=== PATIENT | male | born 2005 ===

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

== ENCOUNTER 2023-01-15 12:45 | Inpatient (IN) | payer OTHER, SELFPAY ==
[2023-01-15 13:19] VITALS: BP 128/60; PULSE 71; RESP 18; TEMP 37.1; O2SAT 98
[2023-01-15 13:53] VITALS: BMI 27.4
--- NOTE | 2023-01-15 17:34 | PC.ADMIT ---
Pt is 17 yr old non-binary preferring to be called Etelvina with no preferred pronouns, coming to [facility] from [facility] s/p SI with plan to jump off bridge after recent breakup. Pt came onto floor on 01/15/23 at 1250 pm and signed a CV and also signed a 3 day. Pt is calm and cooperative during admission but appears depressed and withdrawn. At this time, pt denies SI while on the unit.
[2023-01-15 18:00] VITALS: BP 132/60; PULSE 67; RESP 18; TEMP 36.8; O2SAT 99
--- NOTE | 2023-01-15 18:06 | PC.NURSE ---
Hospitalist consult ordered and contacted 01/15/23 at 1353 to Radha Hall
[2023-01-15] MEDS: hydrOXYzine HCL 25 MG TABLET PO (21:46)
[2023-01-16 08:10] VITALS: BP 125/64; PULSE 66; RESP 18; TEMP 36.1; O2SAT 99
[2023-01-16] MEDS: Escitalopram Oxalate 20 MG TABLET PO (08:17)
[2023-01-16] MEDS: Acetaminophen 325 MG TABLET 650 MG PO (09:07)
--- NOTE | 2023-01-16 12:12 | P.CONHOSP_ITS ---
History of Present Illness Data of Consult Service Date: 01/16/23 Primary Care Provider: NELA UPTON MD [facility] Reason for consult: Admission H&P Pt is a 17-year-old male with a PMH significant for?recent asthma diagnosis, anxiety, and depression who is admitted to [facility] psychiatry unit for increased anxiety and depression with SI with plan to jump off a bridge due to a recent break-up. Medical consult for admission H&P. ?Patient states that he was recently diagnosed with asthma and started on a once a month inhaler. Reports he does not yet have a prescription for a daily rescue inhaler. Also reports chronic knee pain that has been ongoing for many years and is of unknown origin. Denies any trauma or accidents. Currently pain is at baseline. Patient otherwise has no acute medical complaints. Denies fever, chills, nausea, vomiting, abdominal pain. No chest pain/pressure, palpitations. Denies shortness of breath. No wheezing. Denies headache, lightheadedness, dizziness. Review of Systems Review of Systems: Chronic knee pain Patient otherwise has no acute medical complaints at this time. FOR[facility]LY [facility], [facility] Medical History Depression No known health problems Surgical History No history of previous surgery Social History Household Members: Family Housing: House Do you presently have visiting nurse or other home services: No Patient Tobacco Use Status: Never used Tobacco Smoked in Last 30 Days: No Patient Interested in Nicotine Replacement: No Patient Given Instructions on How to Stop Smoking: No Second Hand Smoke Exposure: No Use of substances other than those prescribed or required for medical reasons: No Currently Displaying Signs/Symptoms of Drug Intoxication Withdrawal: No Any prior treatment program specific to substance use: No Have you been hit, kicked, punched, or otherwise hurt by someone within the past year? If so, by whom?: No Do you feel safe in your current relationship?: No Current Relationship Is there a partner from a previous relationship who is making you feel unsafe now?: No Are you made to feel afraid or neglected: No Advance Directives: No Advance Directives Information Provided: Yes (Declined) Do you have thoughts of harming others: None Do you have a plan to hurt others: No Plan Recently lost weight without trying: No Nutrition Risks: No Nutritional Risk Poor oral hygiene: No service: No Sexual orientation: Don't Know Meds Allergies Allergy/AdvReac Type Severity Reaction Status Date / Time No Known Allergies Allergy Verified 07/26/21 16:16 Active Medications: Current Medications Acetaminophen (Acetaminophen 325 Mg Tablet) 650 mg PO Q6H PRN PRN Reason: Headache/Pain Mild Scale (1-3) Last Admin: 01/16/23 09:07 Dose: 650 mg Al Hydroxide/Mg Hydroxide (Magnesium Hydrox/Alum Hydrox 30 Ml Oral.Susp) 30 ml PO Q6H PRN PRN Reason: Heartburn/Nausea Escitalopram Oxalate (Escitalopram Oxalate 20 Mg Tablet) 20 mg PO DAILY EVARISTO Last Admin: 01/16/23 08:17 Dose: 20 mg Hydroxyzine HCl (Hydroxyzine Hcl 25 Mg Tablet) 25 mg PO Q6H PRN PRN Reason: Anxiety Last Admin: 01/15/23 21:46 Dose: 25 mg Magnesium Hydroxide (Milk Of Magnesia 30 Ml Oral.Susp) 30 ml PO DAILY PRN PRN Reason: Constipation Nicotine (Nicotine 21 Mg Patch.Td24) 21 mg TRANSDERMA DAILY PRN PRN Reason: smoking cessation Nicotine Polacrilex (Nicotine Polacrilex 2 Mg Gum) 4 mg BUCCAL Q2H PRN PRN Reason: Nicotine Cravings Trazodone HCl (Trazodone Hcl 50 Mg Tablet) 50 mg PO BEDTIME MRX1 PRN PRN Reason: Insomnia Home Medications Medication Instructions Recorded Confirmed Last Taken Type escitalopram oxalate 10 mg tablet 10 mg PO BEDTIME 01/15/23 01/15/23 01/15/23 08:20 History (Lexapro) Physical Exam Vital Signs and Narrative: Vital Signs: Last Vital Signs Temp 96.9 F 01/16/23 08:10 Pulse 66 01/16/23 08:10 Resp 18 01/16/23 08:10 BP 125/64 01/16/23 08:10 Pulse Ox 99 01/16/23 08:10 O2 Del Method Room Air 01/16/23 08:10 BMI result Body Mass Index 27.4 Constitutional: Alert, in no acute distress. Mental Status: Oriented to person, place and time. Eyes: Pupils are equal, round, and reactive to light. Ear, Nose, and Throat: Oropharynx clear, mucous membranes moist. Ears and nose without deformities. Trachea midline. Respiratory: Clear to auscultation bilaterally. No wheezing, rales, or rhonchi. Cardiovascular: S1, S2 regular. No murmurs, rubs, or gallops. Gastrointestinal: Abdomen soft, non-tender, non-distended. Normal bowel sounds. Neurologic: Cranial nerves II-XII are grossly intact bilaterally. No focal neurological deficits. Moves all extremities spontaneously. Skin: No rashes or lesions noted. Musculoskeletal: No cyanosis or clubbing. Knees non-tender to palpation bilaterally. Preserved passive and active ROM of knees bilaterally. Extremities: No edema. Psychiatric: Flat affect. Assessment and Plan (1) Medical clearance for psychiatric admission: Status: Acute Plan Pt is a 17-year-old male with a PMH significant for?recent asthma diagnosis, anxiety, and depression who is admitted to [facility] psychiatry unit for increased anxiety and depression with SI with plan to jump off a bridge due to a recent break-up. Medical consult for admission H&P. ? Mood disorder Plan as per Psychiatry Mild intermittent Asthma Not in acute exacerbation Continue any home inhalers Chronic bilateral knee pain At baseline Treat conservatively with acetaminophen Patient otherwise has no chronic or acute complaints. Thank you for allowing us to participate in the care of this patient. Signing off at this time. Please let us know if there are any acute complaints or questions. Time Spent With Patient Time: Total time managing care of this patient today ____ minutes.
--- NOTE | 2023-01-16 13:04 | HO.PSYADMNOT ---
HPI Date of Service: 01/16/23 Chief Complaint: Adjustment D/O with Mixed Anxiety and Depression Sources of Information: patient interviewed, chart reviewed and crisis/core team assessment reviewed HPI Subjective Notes: [place] Warning, Conditional Voluntary and 3 Day Healthcare Proxy: No Guardianship: No Medical Problems Affecting Mental Status: No Narrative: 17 yo male, prefers to be called Etelvina, pronouns they, them, transfer from [facility] due to SI, increased depression, anxiety. Plan was to jump from a bridge. Reports feeling overwhelmed with stressors. Reports sx of depression since age 10. Possible precipitants: Recent break up of a 10 month relationship. 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 States the courses are hard and feels his memory is poor. He struggles with the amount of freedom he has as opposed to high school, however, it is a mixed benefit. Reports poor sleep, reversal of cycle-naps during the day and is sleepy all of the time. Past Psychiatric History: Reports depression for 8 years. IP at [facility] by history No suicide attempts. Reports an attempt to suffocate himself recently and contemplation to jump from a bridge. Recent start of treatment at PCP's office. Therapy with Abel Hathaway. Denies hx of irving, denies hx of sx of paranoia, AH, VH, psychotic sx. Medical Evaluation Reviewed: Yes [facility] Medical History Depression No known health problems Narrative: bilateral knee pain Surgical History No history of previous surgery Family History: Parents with depression Social History: 16, single. [employer] in . Does well academically. Second youngest of 6 children born to immigrant parents from [place]. They deny drug or alcohol use. Substance History: social alcohol, cannais Trauma History: I am not sure but I think so Diagnostics Vital Signs (24Hr): Vital Signs - 24 hr 01/15/23 13:19 01/15/23 18:00 01/16/23 08:10 Temperature 98.7 F 98.3 F 96.9 F Pulse Rate 71 67 66 Respiratory Rate 18 18 18 Blood Pressure 128/60 132/60 125/64 Pulse Oximetry 98 99 99 Oxygen Delivery Method Room Air Room Air Room Air BMI result Body Mass Index 27.4 Meds/Allergies Meds Home Medications Medication Instructions Recorded Confirmed Type escitalopram oxalate 10 mg tablet 10 mg PO BEDTIME 01/15/23 01/15/23 History (Lexapro) Allergies Allergies Allergy/AdvReac Type Severity Reaction Status Date / Time No Known Allergies Allergy Verified 07/26/21 16:16 Mental Status Exam Mental Status Exam Patient Appearance: Fatigued Patient Orientation: Person, Place, Time and Situation Level of Consciousness: Alert Patient Behavior: Appropriate, Talkative, Cooperative and Good Eye Contact Mood Description: Depressed Affect Description: Flat Patient Cognition Impaired: No Ability to Follow Directions: Good Speech Pattern: Spontaneous Speech Memory Description: Intact Hallucinations: None Delusions: Not Present Thought Process: Rumination Thought Content: positive for Perseveration Depressive Symptoms: Increased Anxiety, Difficulty Sleeping, Sleeping More Than Usual, Feelings of Worthlessness, Hopelessness, Increased Fatigue, Thoughts of /Suicide, Low Self Esteem, Loss of Energy and Difficulty Concentrating Judgement: Fair Assessment & Plan Assessment & Plan (1) Depression: Status: Acute Code(s): F32.A - Depression, unspecified Plan 17 yo male, prefers to be called Etelvina and use they, them pronouns, sent in transfer from [facility] for increase in depression and SI with plan. Possible precipitants are the recent break up of a relationship and first semester of college. Plan: Collateral contact Increase Lexapro to 20 mg daily Abilify 2 mg a.m. for augmentation, mood regulation Diagnostics Full milieu. Contact with pt's academic team to request extensions for his assignments (Pt is relieved with this offer they report) Patient educated on: therapeutic strategies Informed Consent: further education needed Reason for continued inpatient stay Substantial Risk for: harm to self Statement Statement: I have reviewed the history and physical and performed a pertinent examination on my patient. No changes have occurred unless specified. If the History and Physical was not performed prior to admission, the Hospitalist's service will be consulted for completing the admission physical. Time Spent With Patient Time: Total time managing care of this patient today ____ minutes.
[2023-01-16 16:21] VITALS: BP 115/55; PULSE 72; RESP 16; TEMP 36.7; O2SAT 99
[2023-01-16] MEDS: hydrOXYzine HCL 25 MG TABLET PO (18:32)
[2023-01-17 07:45] VITALS: BP 117/56; PULSE 67; RESP 16; TEMP 36.4; O2SAT 99
[2023-01-17] MEDS: ARIPiprazole 2 MG TABLET PO (09:05)
[2023-01-17] MEDS: Escitalopram Oxalate 20 MG TABLET PO (09:05)
--- NOTE | 2023-01-17 09:52 | HO.PSYCHPN ---
Subjective Subjective Date of Service: 01/17/23 Reason For Visit: Adjustment D/O with Mixed Anxiety and Depression Interim History: With patient; discussed with team; reviewed notes Patient reports that he is feeling better. Denies any SI and says his mood is good. He reports he does have any depression, no thoughts of self-harm no thoughts of suicide. He is anxious about missing school work but says he is pretty sure he will be okay. Looking forward to discharging next week Mental Status Exam Mental Status Exam Narrative: Pt is alert and oriented; behavior is cooperative, isolative but not un-friendly and calm; patient is not in distress; dressed in casual attire scruffy but with adequate hygiene; mood is described as good and affect congruent; eye contact appropriate; Speech is normal rate, volume and prosody and not pressured; no psychomotor agitation/retardation present; thought process is organized and goal directed; Thought content is on tx, discharge; otherwise pertinent to relevant topics and without any delusional content, paranoid ideations or grandiosity; denies any SI/HI. There is no evidence of perceptual disturbance. Patients insight and judgment appear intact. Diagnostics Vital Signs (24Hr): Vital Signs - 24 hr 01/16/23 16:21 01/17/23 07:45 Temperature 98.0 F 97.5 F Pulse Rate 72 67 Respiratory Rate 16 16 Blood Pressure 115/55 L 117/56 L Pulse Oximetry 99 99 Oxygen Delivery Method Room Air Room Air BMI result Body Mass Index 27.4 Medications Medications Current Medications Acetaminophen (Acetaminophen 325 Mg Tablet) 650 mg PO Q6H PRN PRN Reason: Headache/Pain Mild Scale (1-3) Last Admin: 01/16/23 09:07 Dose: 650 mg Al Hydroxide/Mg Hydroxide (Magnesium Hydrox/Alum Hydrox 30 Ml Oral.Susp) 30 ml PO Q6H PRN PRN Reason: Heartburn/Nausea Aripiprazole (Aripiprazole 2 Mg Tablet) 2 mg PO DAILY EVARISTO Last Admin: 01/17/23 09:05 Dose: 2 mg Escitalopram Oxalate (Escitalopram Oxalate 20 Mg Tablet) 20 mg PO DAILY EVARISTO Last Admin: 01/17/23 09:05 Dose: 20 mg Hydroxyzine HCl (Hydroxyzine Hcl 25 Mg Tablet) 25 mg PO Q6H PRN PRN Reason: Anxiety Last Admin: 01/16/23 18:32 Dose: 25 mg Magnesium Hydroxide (Milk Of Magnesia 30 Ml Oral.Susp) 30 ml PO DAILY PRN PRN Reason: Constipation Nicotine (Nicotine 21 Mg Patch.Td24) 21 mg TRANSDERMA DAILY PRN PRN Reason: smoking cessation Nicotine Polacrilex (Nicotine Polacrilex 2 Mg Gum) 4 mg BUCCAL Q2H PRN PRN Reason: Nicotine Cravings Trazodone HCl (Trazodone Hcl 50 Mg Tablet) 50 mg PO BEDTIME MRX1 PRN PRN Reason: Insomnia Allergies Allergies Allergy/AdvReac Type Severity Reaction Status Date / Time No Known Allergies Allergy Verified 07/26/21 16:16 Assessment & Plan Assessment & Plan (1) Depression: Status: Acute Code(s): F32.A - Depression, unspecified Plan 17 yo male, prefers to be called Etelvina and use they, them pronouns, sent in transfer from [facility] for increase in depression and SI with plan. Possible precipitants are the recent break up of a relationship and first semester of college. Hospital course: 01/17 patient reports that his mood is definitely better; says no depressive thoughts, no urges to self-harm or and his life. Looking forward to discharging Plan: Collateral contact Increase Lexapro to 20 mg daily Abilify 2 mg a.m. for augmentation, mood regulation Diagnostics Full milieu. Contact with pt's academic team to request extensions for his assignments (Pt is relieved with this offer they report) Patient educated on: diagnosis Informed Consent: understands Reason for continued inpatient stay Substantial Risk for: stable for discharge Time Spent With Patient Time: Total time managing care of this patient today ____ minutes.
[2023-01-17 16:10] VITALS: BP 121/59; PULSE 76; RESP 16; TEMP 36.4; O2SAT 99
[2023-01-17] MEDS: hydrOXYzine HCL 25 MG TABLET PO (18:38)
[2023-01-18] MEDS: ARIPiprazole 2 MG TABLET PO (08:57)
[2023-01-18] MEDS: Escitalopram Oxalate 20 MG TABLET PO (08:57)
[2023-01-18 09:11] VITALS: BP 121/62; PULSE 73; RESP 18; TEMP 37.2; O2SAT 100
--- NOTE | 2023-01-18 09:57 | HO.PSYCHPN ---
Subjective Subjective Date of Service: 01/18/23 Reason For Visit: Adjustment D/O with Mixed Anxiety and Depression Interim History: Met with patient; discussed with team Patient?reports?that?he?is?feeling?better.??He?did?not?know?that?he?was?on?Abilify?but?says?it?must?be?working. Patient?asked?and?account underwriter?discussed?risks/side?effects?of?Abilify?and?patient?wants?to?continue. Mental Status Exam Mental Status Exam Narrative: Pt is alert and oriented; behavior is cooperative, friendly and calm; patient is not in distress; dressed in casual attire, adequate hygiene; mood is described as good and affect congruent; eye contact appropriate; Speech is normal rate, volume and prosody and not pressured; no psychomotor agitation/retardation present; thought process is organized and goal directed; Thought content is on tx, discharge; otherwise pertinent to relevant topics and without any delusional content, paranoid ideations or grandiosity; denies any SI/HI. There is no evidence of perceptual disturbance. Patients insight and judgment appear intact. Diagnostics Vital Signs (24Hr): Vital Signs - 24 hr 01/17/23 16:10 01/18/23 09:11 Temperature 97.6 F 99 F Pulse Rate 76 73 Respiratory Rate 16 18 Blood Pressure 121/59 L 121/62 Pulse Oximetry 99 100 Oxygen Delivery Method Room Air Room Air BMI result Body Mass Index 27.4 Medications Medications Current Medications Acetaminophen (Acetaminophen 325 Mg Tablet) 650 mg PO Q6H PRN PRN Reason: Headache/Pain Mild Scale (1-3) Last Admin: 01/16/23 09:07 Dose: 650 mg Al Hydroxide/Mg Hydroxide (Magnesium Hydrox/Alum Hydrox 30 Ml Oral.Susp) 30 ml PO Q6H PRN PRN Reason: Heartburn/Nausea Aripiprazole (Aripiprazole 2 Mg Tablet) 2 mg PO DAILY EVARISTO Last Admin: 01/18/23 08:57 Dose: 2 mg Escitalopram Oxalate (Escitalopram Oxalate 20 Mg Tablet) 20 mg PO DAILY EVARISTO Last Admin: 01/18/23 08:57 Dose: 20 mg Hydroxyzine HCl (Hydroxyzine Hcl 25 Mg Tablet) 25 mg PO Q6H PRN PRN Reason: Anxiety Last Admin: 01/17/23 18:38 Dose: 25 mg Magnesium Hydroxide (Milk Of Magnesia 30 Ml Oral.Susp) 30 ml PO DAILY PRN PRN Reason: Constipation Nicotine (Nicotine 21 Mg Patch.Td24) 21 mg TRANSDERMA DAILY PRN PRN Reason: smoking cessation Nicotine Polacrilex (Nicotine Polacrilex 2 Mg Gum) 4 mg BUCCAL Q2H PRN PRN Reason: Nicotine Cravings Trazodone HCl (Trazodone Hcl 50 Mg Tablet) 50 mg PO BEDTIME MRX1 PRN PRN Reason: Insomnia Allergies Allergies Allergy/AdvReac Type Severity Reaction Status Date / Time No Known Allergies Allergy Verified 07/26/21 16:16 Assessment & Plan Assessment & Plan (1) Depression: Status: Acute Code(s): F32.A - Depression, unspecified Plan 17 yo male, prefers to be called Etelvina and use they, them pronouns, sent in transfer from [facility] for increase in depression and SI with plan. Possible precipitants are the recent break up of a relationship and first semester of college. Hospital course: 01/17 patient reports that his mood is definitely better; says no depressive thoughts, no urges to self-harm or and his life. Looking forward to discharging 01/18?patient?reports?feeling?better.??Wants?to?continue?Abilify Plan: Collateral contact Continue?on?Abilify Increase Lexapro to 20 mg daily Abilify 2 mg a.m. for augmentation, mood regulation Diagnostics Full milieu. Contact with pt's academic team to request extensions for his assignments (Pt is relieved with this offer they report) Patient educated on: diagnosis and medication risk/benefits Informed Consent: understands Reason for continued inpatient stay Substantial Risk for: stable for discharge Time Spent With Patient Time: Total time managing care of this patient today ____ minutes.
[2023-01-18 18:00] VITALS: BP 115/59; PULSE 90; RESP 16; TEMP 36.2; O2SAT 99
[2023-01-18] MEDS: Miconazole 2 % Extra Thick Cr 56.7 Gm Tube 1 APPL TOPICAL (20:03)
[2023-01-19] MEDS: ARIPiprazole 2 MG TABLET PO (08:46)
[2023-01-19] MEDS: Escitalopram Oxalate 20 MG TABLET PO (08:46)
[2023-01-19] MEDS: Miconazole 2 % Extra Thick Cr 56.7 Gm Tube 1 APPL TOPICAL ×2 (08:47→22:00)
[2023-01-19 09:16] VITALS: BP 111/55; PULSE 60; RESP 17; TEMP 36.6; O2SAT 99
--- NOTE | 2023-01-19 14:36 | HO.PSYCHPN ---
Subjective Subjective Date of Service: 01/19/23 Reason For Visit: Adjustment D/O with Mixed Anxiety and Depression Subjective Notes: Conditional Voluntary Healthcare Proxy: No Guardianship: No Medical Problems Affecting Mental Status: No Interim History: Pt reports he is feeling improved. Denies SI, plan, intent. Reports medications are tolerated and effective. Discussed his three day notice of intent. He is looking forward to a return to school. Discussed writing a letter indicating admission and request for accommodation for time to complete assignments. Call to [facility], instructed to send an email to [email or web address] and [email or web address] which was completed. This instruction per academic advising dept [phone] #4. Medication Compliance: Yes Side effects from medications: No Attending Groups: Intermittent Review of Systems Acute medical concerns: No Mental Status Exam Mental Status Exam Patient Appearance: Appropriate Patient Orientation: Person, Place, Time and Situation Level of Consciousness: Alert Patient Behavior: Talkative, Cooperative and Good Eye Contact Mood Description: Appropriate Affect Description: Appropriate and Apprehensive Patient Cognition Impaired: No Ability to Follow Directions: Good Speech Pattern: Spontaneous Speech Memory Description: Intact Hallucinations: None Delusions: Not Present Thought Process: Intact and Goal Oriented Thought Content: positive for Intact and positive for Goal Oriented Depressive Symptoms: Thoughts of /Suicide (denies) Judgement: Good Diagnostics Vital Signs (24Hr): Vital Signs - 24 hr 01/18/23 18:00 01/19/23 09:16 Temperature 97.1 F 97.9 F Pulse Rate 90 60 Respiratory Rate 16 17 Blood Pressure 115/59 L 111/55 L Pulse Oximetry 99 99 Oxygen Delivery Method Room Air Room Air BMI result Body Mass Index 27.4 Medications Medications Current Medications Acetaminophen (Acetaminophen 325 Mg Tablet) 650 mg PO Q6H PRN PRN Reason: Headache/Pain Mild Scale (1-3) Last Admin: 01/16/23 09:07 Dose: 650 mg Al Hydroxide/Mg Hydroxide (Magnesium Hydrox/Alum Hydrox 30 Ml Oral.Susp) 30 ml PO Q6H PRN PRN Reason: Heartburn/Nausea Aripiprazole (Aripiprazole 2 Mg Tablet) 2 mg PO DAILY EVARISTO Last Admin: 01/19/23 08:46 Dose: 2 mg Escitalopram Oxalate (Escitalopram Oxalate 20 Mg Tablet) 20 mg PO DAILY EVARISTO Last Admin: 01/19/23 08:46 Dose: 20 mg Hydroxyzine HCl (Hydroxyzine Hcl 25 Mg Tablet) 25 mg PO Q6H PRN PRN Reason: Anxiety Last Admin: 01/17/23 18:38 Dose: 25 mg Magnesium Hydroxide (Milk Of Magnesia 30 Ml Oral.Susp) 30 ml PO DAILY PRN PRN Reason: Constipation Miconazole Nitrate (Miconazole 2 % Extra Thick Cr 56.7 Gm Tube) 1 appl TOPICAL BID EVARISTO; Protocol Stop: 02/06/23 23:59 Last Admin: 01/19/23 08:47 Dose: 1 appl Nicotine (Nicotine 21 Mg Patch.Td24) 21 mg TRANSDERMA DAILY PRN PRN Reason: smoking cessation Nicotine Polacrilex (Nicotine Polacrilex 2 Mg Gum) 4 mg BUCCAL Q2H PRN PRN Reason: Nicotine Cravings Trazodone HCl (Trazodone Hcl 50 Mg Tablet) 50 mg PO BEDTIME MRX1 PRN PRN Reason: Insomnia Allergies Allergies Allergy/AdvReac Type Severity Reaction Status Date / Time No Known Allergies Allergy Verified 07/26/21 16:16 Assessment & Plan Assessment & Plan (1) Depression: Status: Acute Code(s): F32.A - Depression, unspecified Plan 17 yo male, prefers to be called Etelvina and use they, them pronouns, sent in transfer from [facility] for increase in depression and SI with plan. Possible precipitants are the recent break up of a relationship and first semester of college. Hospital course: 01/17 patient reports that his mood is definitely better; says no depressive thoughts, no urges to self-harm or and his life. Looking forward to discharging 01/18?patient?reports?feeling?better.??Wants?to?continue?Abilify 01/19/23 Discharge 01/20 via TDN Plan: Collateral contact Continue?on?Abilify Increase Lexapro to 20 mg daily Abilify 2 mg a.m. for augmentation, mood regulation Diagnostics Full milieu. Contact with pt's academic team to request extensions for his assignments (Pt is relieved with this offer they report) Patient educated on: medication risk/benefits and therapeutic strategies Informed Consent: understands Reason for continued inpatient stay Substantial Risk for: stable for discharge Time Spent With Patient Time: Total time managing care of this patient today ____ minutes.
[2023-01-19] MEDS: hydrOXYzine HCL 25 MG TABLET PO (15:21)
[2023-01-19 20:05] VITALS: BP 118/55; PULSE 76; RESP 17; TEMP 36.7; O2SAT 98
[2023-01-20 08:10] VITALS: BP 130/60; PULSE 68; RESP 18; TEMP 35.9; O2SAT 99
[2023-01-20] MEDS: Escitalopram Oxalate 20 MG TABLET PO (09:02)
[2023-01-20] MEDS: ARIPiprazole 2 MG TABLET PO (09:02)
[2023-01-20] MEDS: Miconazole 2 % Extra Thick Cr 56.7 Gm Tube 1 APPL TOPICAL (09:03)
--- NOTE | 2023-01-20 16:00 | PM.PSYDC ---
DS: Providers Provider Date of Service: 01/20/23 Date of admission: 01/15/23 12:45 Date of discharge: 01/20/23 Primary care physician: NELA UPTON MD Admitting clinician: Ciera Mishra Attending physician on admission: Philip Bella Consults: 01/15/23 13:02 Consult to Hospitalist Routine Comment: Consulting Provider: Hospitalist Reason For Exam: admission physical Attending physician on discharge: Philip Bella Discharging clinician: Ciera Mishra DS: Diagnosis Discharge Diagnosis (1) Depression: Status: Acute DS: Medications Discharge Medications Home Medications: Previous Rx's Medication Instructions Recorded aripiprazole 2 mg tablet (Abilify) 2 mg PO DAILY #30 tabs 01/19/23 escitalopram oxalate 20 mg tablet 20 mg PO DAILY #30 tabs 01/19/23 miconazole nitrate 2 % topical 1 appl topical BID #1 units 01/19/23 cream (Inzo Antifungal) Mental Status Exam Mental Status Exam Patient Appearance: Appropriate Patient Orientation: Person, Place, Time and Situation Level of Consciousness: Alert Patient Behavior: Talkative, Cooperative and Good Eye Contact Mood Description: Appropriate Affect Description: Appropriate and Apprehensive Patient Cognition Impaired: No Ability to Follow Directions: Good Speech Pattern: Spontaneous Speech Memory Description: Intact Hallucinations: None Delusions: Not Present Thought Process: Intact and Goal Oriented Thought Content: positive for Intact and positive for Goal Oriented Depressive Symptoms: Thoughts of /Suicide (denies) Judgement: Good DS: Summary Hospital Course Hospital Course: Admission to adult psychiatry for exacerbation of depression related to a loss of a relationship. Pt presented with sx of SI, grief and symptoms of adjustment reaction. On the unit medications were reviewed and adjusted. Pt was offered full milieu therapy. 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 He was able to contract for safety and was discharged to home and a return to his daily activities and psychiatric team. Time spent discussing smoking cessation with patient: more than 10 minutes Status at Discharge Functional status at discharge: independent ambulation Overall status at discharge: patient is progressing back to baseline Time Spent with Patient Time attestation: Total time managing care of this patient today ____ minutes. Time spent: Greater than 30 minutes Discharge Plan Discharge Anticipated Discharge Date/Time: 01/19/23 12:16 Patient Disposition: Home, Self-Care Discharge Diagnosis: Depression Referrals: Dr. Latasha Gurrola Medication Mgmt [Other] - 01/23/23 11:20 am Abel Hathaway Therapist [Other] - 01/23/23 11:30 am (Abel will meet together with you and Dr. Gurrola.) Discharge Medications: New miconazole nitrate [Inzo Antifungal] 2 % Cream 1 appl topical BID Qty: 1 0RF Protocol: Apply to: Apply to: groin area escitalopram oxalate 20 mg Tablet 20 mg PO DAILY Qty: 30 0RF aripiprazole [Abilify] 2 mg Tablet 2 mg PO DAILY Qty: 30 0RF Discontinued escitalopram oxalate [Lexapro] 10 mg tablet 10 mg PO BEDTIME Discharge Orders: Discharge Order (Routine); Ordered 01/20/23 Ordered By: Ciera Mishra Diet: Advance to usual diet Activity on Discharge: As tolerated Stand Alone Forms: Patient Portal Discharge page, Community Support Care Plan Goals: Mood and Behavioral Stabilization Health Concerns: Mood and Behavioral Stabilization Plan of Treatment: Attend scheduled appointments Take medications as directed Call/Return if needed Assessment: Discharge on a three day notice Discharge Date/Time: 01/20/23 10:55
== END 2023-01-20 10:55 | disposition home or self-care (01) | DRG 754 ==
PROVIDERS: Admitting Provider Psychiatry & Neurology Psychiatry; PCP Pediatrics Adolescent Medicine; Visit Provider Clinical Nurse Specialist Psychiatric/Mental Health, Adult
DX: F32.A Depression, unspecified (principal); R45.851 Suicidal ideations; J45.20 Mild intermittent asthma, uncomplicated; M25.561 Pain in right knee; M25.562 Pain in left knee; Z23 Encounter for immunization; Z79.899 Other long term (current) drug therapy
CPT/HCPCS: 90686

== ENCOUNTER → 2023-01-15 12:45 | Outpatient (BNV) | payer MEDICAID, SELFPAY | PROVIDERS: Admitting Provider Psychiatry & Neurology Psychiatry; PCP Pediatrics Adolescent Medicine; Visit Provider Student in an Organized Health Care Education/Training Program | DX: Z00.8 Encounter for other general examination (principal) | CPT/HCPCS: 99222 ==

== ENCOUNTER → 2023-01-15 12:45 | Outpatient (BNV) | payer OTHER, SELFPAY | PROVIDERS: Admitting Provider Psychiatry & Neurology Psychiatry; PCP Pediatrics Adolescent Medicine; Visit Provider Psychiatry & Neurology Psychiatry | DX: F33.2 Major depressive disorder, recurrent severe without psychotic features (principal) | CPT/HCPCS: 99231; 99232 ==